=== PATIENT | male | born 1985 | race Caucasian/White ===

== ENCOUNTER 2025-05-31 12:11 | Outpatient (CLI) | payer BC ==
[2025-05-31 13:00] LABS: IRON, SERUM 70 ug/dL (50-175)
== END 2025-05-31 23:59 | disposition home or self-care (01) ==
LOC: LAB 12:11
PROVIDERS: ATTEND Family Medicine
DX: E61.1 Iron deficiency (principal)
CPT/HCPCS: 36415; 83550